=== PATIENT | female | born 1985 | race Caucasian/White ===

== ENCOUNTER 2019-10-18 02:48 | Emergency (ER) | payer OTHER, BC ==
[2019-10-18 04:16] LABS: ABSOLUTE BASOPHILS # (AUTO) 0.1 10^3/uL (0.0-0.2); ABSOLUTE EOSINOPHILS # (AUTO) 0.3 10^3/uL (0.0-0.6); ABSOLUTE LYMPHOCYTES (AUTO) 2.7 10^3/uL (0.5-4.7); ABSOLUTE MONOCYTES (AUTO) 0.4 10^3/uL (0.1-1.4); ABSOLUTE NEUT (AUTO) 3.5 10^3/uL (1.7-8.2); ALBUMIN 5.2 g/dL (3.5-5.0); ALCOHOL 223 mg/dL (NONE DETECTED); ALKALINE PHOSPHATASE 66 U/L (38-126); ANION GAP 11 (5-19); ASPARTATE AMINO TRANSFERASE 43 U/L (14-36); BASOPHILS % (AUTO) 1.3 % (0-2); BILIRUBIN,DIRECT 0.1 mg/dL (0.0-0.4); BILIRUBIN,TOTAL 0.5 mg/dL (0.2-1.3); BLOOD UREA NITROGEN 9 mg/dL (7-20); CALCIUM 9.5 mg/dL (8.4-10.2); CARBON DIOXIDE 27 mmol/L (22-30); CHLORIDE 105 mmol/L (98-107); EOSINOPHILS % (AUTO) 4.2 % (0-6); GLUCOSE 115 mg/dL (75-110); HEMOGLOBIN 14.8 g/dL (12.0-15.5); LYMPHOCYTES % (AUTO) 39.3 % (13-45); MEAN CORPUSCULAR HEMOGLOBIN 30.7 pg (27.0-33.4); MEAN CORPUSCULAR HGB CONC 34.4 g/dL (32.0-36.0); MEAN CORPUSCULAR VOLUME 89 fl (80-97); MONOCYTES % (AUTO) 5.1 % (3-13); PLATELET COUNT 267 10^3/uL (150-450); POTASSIUM 4.4 mmol/L (3.6-5.0); RED BLOOD COUNT 4.82 10^6/uL (3.72-5.28); RED CELL DISTRIBUTION WIDTH 13.4 % (11.5-14.0); SEGMENTED NEUTROPHILS % (AUTO) 50.1 % (42-78); TOTAL CELLS COUNTED % (AUTO) 100 %; TOTAL PROTEIN 8.2 g/dL (6.3-8.2); WHITE BLOOD COUNT 6.9 10^3/uL (4.0-10.5)
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
[2019-10-18 07:01] VITALS: BP 120/87
== END 2019-10-18 07:14 | disposition home or self-care (01) ==
LOC: ER 02:48
DX: S06.0X1A Concussion with loss of consciousness of 30 minutes or less, initial encounter (principal); S00.81XA Abrasion of other part of head, initial encounter; V28.4XXA Motorcycle driver injured in noncollision transport accident in traffic accident, initial encounter; Y93.89 Activity, other specified; F10.129 Alcohol abuse with intoxication, unspecified; Z88.6 Allergy status to analgesic agent; Z88.5 Allergy status to narcotic agent
CPT/HCPCS: 36415; 70450; 71046; 72125; 72170; 80053; 80307; 84703; 85025; 99284

== ENCOUNTER 2020-03-20 23:55 | Emergency (ER) | payer BC ==
[2020-03-21 00:55] LABS: ABSOLUTE BASOPHILS # (AUTO) 0.1 10^3/uL (0.0-0.2); ABSOLUTE EOSINOPHILS # (AUTO) 0.2 10^3/uL (0.0-0.6); ABSOLUTE LYMPHOCYTES (AUTO) 1.7 10^3/uL (0.5-4.7); HEMOGLOBIN 13.8 g/dL (12.0-15.5); MONOCYTES % (AUTO) 3.4 % (3-13); TOTAL CELLS COUNTED % (AUTO) 100 %
[2020-03-21 01:10] LABS: ABSOLUTE MONOCYTES (AUTO) 0.3 10^3/uL (0.1-1.4); ABSOLUTE NEUT (AUTO) 5.3 10^3/uL (1.7-8.2); ALCOHOL 176 mg/dL (NONE DETECTED); ALKALINE PHOSPHATASE 83 U/L (38-126); ANION GAP 12 (5-19); ASPARTATE AMINO TRANSFERASE 32 U/L (14-36); BILIRUBIN,TOTAL 0.5 mg/dL (0.2-1.3); BLOOD UREA NITROGEN 9 mg/dL (7-20); CALCIUM 9.4 mg/dL (8.4-10.2); CARBON DIOXIDE 23 mmol/L (22-30); CHLORIDE 104 mmol/L (98-107); EOSINOPHILS % (AUTO) 2.1 % (0-6); GLUCOSE 124 mg/dL (75-110); HEMATOCRIT 40.2 % (36.0-47.0); LYMPHOCYTES % (AUTO) 22.8 % (13-45); MEAN CORPUSCULAR HEMOGLOBIN 30.2 pg (27.0-33.4); MEAN CORPUSCULAR HGB CONC 34.3 g/dL (32.0-36.0); MEAN CORPUSCULAR VOLUME 88 fl (80-97); PLATELET COUNT 289 10^3/uL (150-450); POTASSIUM 4.3 mmol/L (3.6-5.0); RED BLOOD COUNT 4.56 10^6/uL (3.72-5.28); RED CELL DISTRIBUTION WIDTH 13.6 % (11.5-14.0); SEGMENTED NEUTROPHILS % (AUTO) 70.7 % (42-78); TOTAL PROTEIN 8.1 g/dL (6.3-8.2); WHITE BLOOD COUNT 7.5 10^3/uL (4.0-10.5)
[2020-03-21 01:16] LABS: ACETAMINOPHEN < 10 ug/mL (10-30); SALICYLATE < 1.0 mg/dL (2.0-20.0)
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
--- NOTE | 2020-03-21 02:27 | RADIOLOGY REPORT (SQ) ---
EXAM DESCRIPTION: CT HEAD WITHOUT IV CONTRAST COMPLETED DATE/TME: 03/21/2020 01:45 CLINICAL HISTORY: 35 years, Female, altered mental status COMPARISON: 10/18/2019 TECHNIQUE: Axial CT images of the brain were obtained without contrast. Sagittal and coronal reformats were performed. DL 1043 Images stored on PACS. All CT scanners at this facility use dose modulation, iterative reconstruction, and/or weight based dosing when appropriate to reduce radiation dose to as low as reasonably achievable (ALARA). [facility]: Dose Right [facility]: CareDose [facility]: Dose Right [facility]: Teradose 4D [facility]: [employer] LIMITATIONS: None. FINDINGS: There is no acute cortical infarct, hemorrhage, mass, edema, hydrocephalus, or extra-axial fluid collection. The arevalo-white matter differentiation is preserved. The paranasal sinuses and mastoid air cells are clear. There is no acute fracture. IMPRESSION: No acute intracranial abnormality TECHNICAL DOCUMENTATION: Quality ID # 436: Final reports with documentation of one or more dose reduction techniques (e.g., Automated exposure control, adjustment of the mA and/or kV according to patient size, use of iterative reconstruction technique) copyright 2011 [employer]- All Rights Reserved
[2020-03-21 03:08] LABS: APPEARANCE,URINE CLEAR; BILIRUBIN,URINE NEGATIVE (NEGATIVE); COLOR,URINE STRAW; GLUCOSE, URINE NEGATIVE (NEGATIVE); KETONES,URINE NEGATIVE (NEGATIVE); LEUKOCYTE ESTERASE,URINE NEGATIVE (NEGATIVE); NITRITE,URINE NEGATIVE (NEGATIVE); PROTEIN,URINE NEGATIVE (NEGATIVE); URINE SPECIFIC GRAVITY 1.006; UROBILINOGEN,URINE NEGATIVE mg/dL (<2.0)
[2020-03-21 03:21] LABS: URINE AMPHETAMINES SCREEN NEGATIVE; URINE BARBITURATES SCREEN NEGATIVE; URINE BENZODIAZEPINES SCREEN NEGATIVE; URINE COCAINE SCREEN NEGATIVE; URINE MARIJUANA (THC) SCREEN NEGATIVE; URINE METHADONE SCREEN NEGATIVE; URINE PHENCYCLIDINE SCREEN NEGATIVE
--- NOTE | 2020-03-21 09:44 | EKG REPORT ---
SEVERITY:- BORDERLINE ECG - SINUS RHYTHM PROBABLE LEFT ATRIAL ABNORMALITY : Confirmed by: Maritza Álvarez MD 21-Mar-2020 09:44:05
--- NOTE | 2020-03-21 11:51 | PSYCHOLOGICAL NOTE ---
Psych Note - Psych Note Date seen by psych provider: 03/21/20 Time seen by psych provider: 09:55 Psych Note: Reason for Consult:Detox Patient arrived to [facility] ED via EMS with an EtOH of 176. Patient confirms she would like assistance in detox. Patient provided verbal consent to send her information to the [facility]. Behavior health team contacted [facility]; faxed referral packet. Behavioral health received call back from [facility]. They confirm that the patient's insurance is active and they do currently have a bed however due to patient's policy, the patient would have to pay a copayment upon arrival for $1107.46. Clinician reports that she will discuss this option with the patient. Patient discloses that she does not have co-pay. She provides verbal consent to provide the [facility] her information for possible voluntary detox placement. Behavioral health team contacted [facility]; faxed referral packet. The behavioral health team received call back from [facility]. They confirm they will reserve a bed for the patient for today 03/21/2020 at 12:30 PM. Behavior health team received call back from [facility]. They reports that they can waive the patient's co-pay fee of $1107.46. They report they can provide transportation to their facility. Clinician explained she will present both options to the patient and allow the patient to choose. Clinician discussed options with patient. She reports she would prefer to stay closer to home and states she would like to go to the [facility]. Clinician contacted [facility] to inform them of the patient's decision. Patient is alert and orientated to person, place, time and circumstance. Mood is currently euthymic with congruent affect as evidenced by smiling engaging wi th clinician. Patient denies suicidal and homicidal ideation. Delusions are absent and behaviors congruent with an intact reality based presentation i.e. organized and linear thought process. Eye contact was well maintained. Conversational speech is within normal rate, tone and prosody. Intellectual abilities appear to be within the average range. Attention and concentration are currently good. Insight, judgment, impulse control is fair (these are affected by patient's substance abuse). Clinical presentation: euthymic mood Substance abuse; alcohol Impression\plan: Patient is cleared from acute psychiatric services. The behavioral health team was able to secure a bed at the [place] [facility] for detox. Patient is highly encouraged to follow through with this voluntary placement. Patient is scheduled for a 12:[address] Cuevas was consulted in the care management of this patient; tending physicians in agreement with recommendations and disposition.
--- NOTE | 2020-03-21 13:43 | ER Document Report ---
Doctor's Note Notes: 03/21/20 13:38 Patient was reevaluated. Sitting comfortably in chair in room. Patient's vital signs and previous labs and imaging were reviewed. She has a room at [place]. She reports she has mild headache. She denies any fever, chills, shortness of breath, chest pain, abdominal pain or additional symptoms at this time. She is medically cleared. she has a ride to [place]. I discussed with the patient the importance of going directly to [place]. She acknowledges and verbalizes understanding of instructions. General: Alert, oriented, tearful Heart: Regular rate, rhythm Lungs: Clear to auscultation bilaterally Abdomen: Soft, nontender Skin: Dry, warm, normal turgor
[2020-03-21 14:12] VITALS: BP 123/70
== END 2020-03-21 14:13 | disposition home or self-care (01) ==
LOC: ER 23:55
DX: F10.10 Alcohol abuse, uncomplicated (principal); Y90.6 Blood alcohol level of 120-199 mg/100 ml; H57.04 Mydriasis; R41.82 Altered mental status, unspecified; F17.200 Nicotine dependence, unspecified, uncomplicated; R51 Headache
CPT/HCPCS: 36415; 51701; 70450; 80053; 80307; 81001; 84703; 85025; 93005; 93010; 99285